=== PATIENT | female | born 1975 | race Native Hawaiian/Other Pacific Islander ===

== ENCOUNTER 2020-12-12 16:50 | Emergency (ER) | payer OTHER ==
[2020-12-12] MEDS ORDERED: predniSONE 20 MG TAB PO ONE (23:51)
[2020-12-12] MEDS ORDERED: IPRATROPIUM/ALBUTEROL SULFATE 3 ML AMPUL.NEB IH ONE (23:53)
--- NOTE | 2020-12-13 00:14 | Emergency Department Report ---
ED General Adult HPI - General Chief complaint: Pain General Stated complaint: BODY ACHES Time Seen by Provider: 12/12/20 23:57 Source: patient Mode of arrival: Ambulatory Limitations: Language Barrier - History of Present Illness Initial comments: 45-year-old female resents emergency department complaining of 1 day history dull throbbing headache which is preceded by a couple day history of progressive worsening cough congestion wheezing with some mucus production and chest tightness. Reports no hemoptysis no hematemesis hematochezia, no nausea, no vomiting, no no diarrhea - Related Data Previous Rx's Medication Instructions Recorded Last Taken Type Ferrous Gluconate [Fergon] 325 mg PO QDAY #30 tablet 10/20/13 Unknown Rx HYDROcodone/APAP 5-325 [[place] 1 each PO Q6HR PRN #10 tablet 10/20/13 Unknown Rx 5/325 mg] Omeprazole [PriLOSEC] 20 mg PO QDAY #30 capsule. 10/20/13 Unknown Rx Ondansetron [Zofran Odt] 4 mg PO Q6H PRN #10 tab.rapdis 10/20/13 Unknown Rx Ciprofloxacin HCl [Cipro] 500 mg PO BID #14 tablet 10/21/13 Unknown Rx Hyoscyamine Subl [Levsin Sl] 0.125 mg SL Q6HR PRN #14 tablet 10/21/13 Unknown Rx metroNIDAZOLE [Flagyl] 500 mg PO Q8HR #14 tablet 10/21/13 Unknown Rx oxyCODONE /ACETAMINOPHEN [Percocet 1 tab PO Q6HR PRN #10 tablet 10/21/13 Unknown Rx 5/325 mg] ALBUTEROL NEB's [Proventil 0.083% 2.5 mg IH TID PRN #1 neb 12/13/20 Unknown Rx NEBS] predniSONE [Deltasone] 50 mg PO QDAY #5 tab 12/13/20 Unknown Rx Allergies Allergy/AdvReac Type Severity Reaction Status Date / Time No Known Allergies Allergy Verified 01/29/13 17:41 ED Review of Systems ROS: Stated complaint: BODY ACHES Other details as noted in HPI Comment: All other systems reviewed and negative ED Past Medical Hx - Past Medical History Hx Hypertension: No Hx Congestive Heart Failure: No Hx Diabetes: No Hx Deep Vein Thrombosis: No Hx Renal Disease: No Hx Sickle Cell Disease: No Hx Seizures: No Hx Asthma: No Hx COPD: No - Social History Smoking Status: Unknown if ever smoked Substance Use Type: None - Medications Home Medications: Home Medications Medication Instructions Recorded Confirmed Last Taken Type Ferrous Gluconate [Fergon] 325 mg PO QDAY #30 tablet 10/20/13 Unknown Rx HYDROcodone/APAP 5-325 [[place] 1 each PO Q6HR PRN #10 tablet 10/20/13 Unknown Rx 5/325 mg] Omeprazole [PriLOSEC] 20 mg PO QDAY #30 capsule.dr 10/20/13 Unknown Rx Ondansetron [Zofran Odt] 4 mg PO Q6H PRN #10 tab.rapdis 10/20/13 Unknown Rx Ciprofloxacin HCl [Cipro] 500 mg PO BID #14 tablet 10/21/13 Unknown Rx Hyoscyamine Subl [Levsin Sl] 0.125 mg SL Q6HR PRN #14 tablet 10/21/13 Unknown Rx metroNIDAZOLE [Flagyl] 500 mg PO Q8HR #14 tablet 10/21/13 Unknown Rx oxyCODONE /ACETAMINOPHEN [Percocet 1 tab PO Q6HR PRN #10 tablet 10/21/13 Unknown Rx 5/325 mg] ALBUTEROL NEB's [Proventil 0.083% 2.5 mg IH TID PRN #1 neb 12/13/20 Unknown Rx NEBS] predniSONE [Deltasone] 50 mg PO QDAY #5 tab 12/13/20 Unknown Rx ED Physical Exam - General Limitations: Language Barrier General appearance: alert, in no apparent distress - Head Head exam: Present: atraumatic, normocephalic - Eye Eye exam: Present: normal appearance, PERRL, EOMI Pupils: Present: normal accommodation - ENT ENT exam: Present: normal exam, normal orophraynx, mucous membranes moist, TM's normal bilaterally - Neck Neck exam: Present: normal inspection, full ROM - Respiratory Respiratory exam: Present: normal lung sounds bilaterally. Absent: respiratory distress - Cardiovascular Cardiovascular Exam: Present: regular rate, normal rhythm. Absent: systolic murmur, diastolic murmur, rubs, gallop - GI/Abdominal GI/Abdominal exam: Present: soft, normal bowel sounds - Extremities Exam Extremities exam: Present: normal inspection, full ROM, normal capillary refill - Back Exam Back exam: Present: normal inspection. Absent: CVA tenderness (R), CVA tenderness (L), muscle spasm - Neurological Exam Neurological exam: Present: alert, oriented X3, CN II-XII intact - Psychiatric Psychiatric exam: Present: normal affect, normal mood. Absent: flat affect, manic - Skin Skin exam: Present: warm, dry, intact, normal color. Absent: rash, cyanosis, diaphoretic, erythema, urticaria ED Course Vital Signs 12/12/20 12/12/20 20:22 20:23 Temperature 98.0 F Pulse Rate 101 H Respiratory 18 Rate Blood Pressure 127/85 O2 Sat by Pulse 94 94 Oximetry ED Medical Decision Making - Radiology Data Radiology results: report reviewed [facility] [address] [place] [address] XRay Report Signed Patient: BATOOL VILLANUEVA MR#: [id number] : 1975 Acct:[id number] Age/Sex: 45 / F ADM Date: 12/12/20 Loc: ED Attending Dr: Ordering Physician: KEV PEÑA MD Date of Service: 12/12/20 Procedure(s): XR chest routine 2V Accession Number(s): [id number] cc: KEV PEÑA MD Fluoro Time In Minutes: CHEST 2 VIEWS INDICATION / CLINICAL INFORMATION: cough. COMPARISON: None available. FINDINGS: SUPPORT DEVICES: None. HEART / MEDIASTINUM: No significant abnormality. LUNGS / PLEURA: No significant pulmonary or pleural abnormality. No pneumothorax. ADDITIONAL FINDINGS: No significant additional findings. IMPRESSION: 1. No acute findings. Signer Name: Marcel Gonsales MD Signed: 12/13/2020 12:35 AM Workstation Name: [id number] Transcribed By: TL Dictated By: Marcel Gonsales MD Electronically Authenticated By: Marcel Gonsales MD Signed Date/Time: 12/13/2034 DD/ TD/TT: - Medical Decision Making 45-year-old female presents emerged department complaining of cough congestion and wheezing have an asthma exacerbation. Treated with nebulizers and steroids chest x-ray was normal no emergent causes of his condition she treat neck pain follow-up primary care provider Critical care attestation.: If time is entered above; I have spent that time in minutes in the direct care of this critically ill patient, excluding procedure time. ED Disposition Clinical Impression: Asthma, Cough Disposition: HOME / SELF CARE / HOMELESS Is pt being admited?: No Does the pt Need Aspirin: No Condition: Stable Instructions: Asthma (ED), Asthma, Adult, Cool Mist Vaporizer, How to Use a Nebulizer, Adult, Cough, Adult, How to Use a Dry Powder Inhaler, [id number] Prescriptions: predniSONE [Deltasone] 50 mg PO QDAY #5 tab ALBUTEROL NEB's [Proventil 0.083% NEBS] 2.5 mg IH TID PRN #1 neb PRN Reason: Wheezing Referrals: PRIMARY CARE, [Primary Care Provider] - 3-5 Days
--- NOTE | 2020-12-13 00:40 | XRay Report ---
CHEST 2 VIEWS INDICATION / CLINICAL INFORMATION: cough. COMPARISON: None available. FINDINGS: SUPPORT DEVICES: None. HEART / MEDIASTINUM: No significant abnormality. LUNGS / PLEURA: No significant pulmonary or pleural abnormality. No pneumothorax. ADDITIONAL FINDINGS: No significant additional findings. IMPRESSION: 1. No acute findings. Signer Name: Marcel Gonsales MD Signed: 12/13/2020 12:35 AM Workstation Name: [id number]
[2020-12-13 05:52] VITALS: BP 108/61
== END 2020-12-13 05:53 | disposition home or self-care (01) ==
LOC: ED 16:50
DX: J45.909 Unspecified asthma, uncomplicated (principal); R05 Cough; Z79.899 Other long term (current) drug therapy
CPT/HCPCS: 71046; 94640; 99283; J7512; 94644